=== PATIENT | male | born 1995 | race Caucasian/White ===

== ENCOUNTER 2017-10-03 18:31 | Emergency (ER) | payer OTHER, SELFPAY ==
[2017-10-03 18:33] VITALS: BP 115/59; PULSE 89; RESP 18; TEMP 36.5; O2SAT 98; BMI 19.9
--- NOTE | 2017-10-03 18:50 | RAD_ITS ---
STUDY: X-RAY - RIGHT WRIST REASON FOR EXAM: Male, 21 years old. Fall 2 days ago, pain. TECHNIQUE: 3 view(s) of the wrist were obtained. COMPARISON: None. FINDINGS: Normal visualized distal radius and ulna. Normal radiocarpal articulation. Normal distal radioulnar articulation. On the oblique view, there is a linear lucency through the mid body of the scaphoid that is difficult to confirm in the remaining images. This appears well corticated, and is likely a vascular channel rather than fracture. Carpal bones. Normal carpal articulations. Normal carpometacarpal articulation of the thumb. Normal second through fifth carpometacarpal articulations. Normal visualized metacarpal bones. The soft tissue structures are unremarkable. RAD/Wrist 2 Views IMPRESSION: No acute fracture of the right wrist. Electronically Signed: Tye Jordan MD at 19:25 EDT , Service support ,
--- NOTE | 2017-10-03 19:44 | ED.RN ---
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 pt terminal operations supervisor did not indicate a particular follow up company.
--- NOTE | 2017-10-03 19:46 | ED.DEP ---
ED Disposition - Plan for ED Patient: Chief Complaint: Upper Extremity Injury Instructions: ED Sprain Wrist Referrals: [facility] [GROUP OF PHYSICIANS] -
--- NOTE | 2017-10-03 19:57 | ED.DCSUM_ITS ---
- ER Visit Summary Date of Service: 10/03/17 Chief Complaint: Right wrist pain History of Present Illness: The patient is a 21 M presenting with right wrist pain. Patient was at work 2 days ago and fell. He was running and lost his balance and caught himself with his right upper extremity. He did not hit his head or lose consciousness. He states the pain was worse yesterday but continued to have pain today. Denies other injuries. Physical Examination: Vitals are stable. Patient is afebrile. Alert no acute distress. HEENT exam is unremarkable. Lungs are clear and equal bilaterally. Heart is regular rate and rhythm. Extremity: Right wrist diffuse tenderness with no swelling or deformity. Active full range of motion. Hand and elbow are nontender. Skin is warm and dry. No focal neurologic deficit. Remainder of exam is unremarkable. Emergency Department Course and Treatment: X-ray of the right wrist shows no acute process. Patient is given a Velcro wrist splint. Advised use NSAIDs for pain. Advised to ice and elevate. Advised to follow-up with [facility]. Advised return to ED if worsening complaints. Disposition: Discharge home Impression: Right wrist sprain This note was generated with [employer] dictation software. It may contain incorrect words, spelling, and punctuation that were not noted in review of the chart prior to signing ED Disposition - Plan for ED Patient: Chief Complaint: Upper Extremity Injury Instructions: ED Sprain Wrist Referrals: [facility] [GROUP OF PHYSICIANS] -
[2017-10-03 20:13] VITALS: BP 135/75; PULSE 70; RESP 16; O2SAT 97
== END 2017-10-03 20:14 | disposition home or self-care (01) ==
LOC: ED 19:50
PROVIDERS: Emergency Provider Emergency Medicine
DX: S63.501A Unspecified sprain of right wrist, initial encounter (principal); W19.XXXA Unspecified fall, initial encounter; Y93.02 Activity, running; Y92.9 Unspecified place or not applicable
CPT/HCPCS: 73100; 99283